=== PATIENT | female | born 1985 ===

== ENCOUNTER → 2019-09-22 | Outpatient (CLI) | payer SELFPAY ==
[2019-09-27 15:09] LABS: HPV 16 Negative (Negative); HPV 18 Negative (Negative); HPV OTHER HR TYPES Negative (Negative)
== END | disposition home or self-care (01) ==
LOC: LAB SHORT 15:31 → LAB 15:31
PROVIDERS: Obstetrics & Gynecology
DX: Z01.419 Encounter for gynecological examination (general) (routine) without abnormal findings (principal)
CPT/HCPCS: 87624; G0123